=== PATIENT | female | born 2000 | race Two or more races ===

== ENCOUNTER 2023-11-27 14:15 | Observation (INO) | payer OTHER, SELFPAY ==
[~2023-11-27] VITALS: Ht 157.5 cm; Wt 75.9 kg
[2023-11-27 14:20] VITALS: BP 137/78; PULSE 118; RESP 18; O2SAT 97
== END 2023-11-27 17:05 | disposition home or self-care (01) ==
LOC: ER 14:15 → LDRP 14:21
PROVIDERS: ADMIT Obstetrics & Gynecology; ATTEND Obstetrics & Gynecology
DX: O62.9 Abnormality of forces of labor, unspecified (principal); O34.62 Maternal care for abnormality of vagina, second trimester; N89.8 Other specified noninflammatory disorders of vagina; Z3A.21 21 weeks gestation of pregnancy; Z98.890 Other specified postprocedural states
CPT/HCPCS: 59025; 76805; 81002; 94760; 99284; G0378